=== PATIENT | female | born 2005 | race Two or more races ===

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

== ENCOUNTER 2024-12-26 21:22 | Emergency (ER) | payer MEDICAID ==
[~2024-12-26] VITALS: Ht 152.4 cm; Wt 67.9 kg
[~2024-12-26 21:22] MED LIST: DOCU-94 PO; NAPR-746 PO
--- NOTE | 2024-12-26 21:56 | ED.PDOC ---
History of Present Illness(SKN HPI Comments This is a 18-year-old female presents to the ED chief complaint cat bites. Patient states her domestic cat at home she notes vaccines are up-to-date attacked her started acting funny and started scratching both her arms and bit her left and right wrist. Complaining of pain throbbing like 6/10 on pain sca le. Reports no fevers nausea vomiting, bleeding controlled no full-thickness bite penny. Chief Complaint: Animal Bite Time Seen by MD: 21:30 History of Present Illness: Nurses Notes, Medications, Allergies Allergies: Coded Allergies: NO KNOWN ALLERGIES (Unverified , 05/28/22) Home Meds Active Scripts Naproxen (Naproxen) 500 Mg Tab, 500 MG PO BID, #30 TAB Prov:VIC FARFAN 05/28/22 Docusate Sodium (Colace) 100 Mg Cap, 1 CAP PO BID, #30 CAP Prov:VIC FARFAN 05/28/22 Information Source: Patient Mode of Arrival: Ambulatory Past Medical History PAST MEDICAL HISTORY: Denies Surgical History: Denies all surgeries [employer] History: No Pertinent [employer] History Family History Family History: Reviewed,noncontributory to illness Social History Smoker: Non-Smoker Alcohol: Denies ETOH Use Drugs: Denies Drug Use Lives In: Home Constitutional: denies: chills, diaphoresis, fatigue, fever, malaise, sweats, weakness, others EENTM: denies: blurred vision, double vision, ear bleeding, ear discharge, ear drainage, ear pain, ear ringing, eye pain, eye redness, hearing loss, mouth pain, mouth swelling, nasal discharge, nose bleeding, nose congestion, nose pain, photophobia, tearing, throat pain, throat swelling, voice changes, others Respiratory: denies: cough, hemoptysis, orthopnea, SOB at rest, shortness of breath, SOB with excertion, stridor, wheezing, others Cardiovascular: denies: chest pain, dizzy spells, diaphoresis, Dyspnea on e xertion, edema, irregular heart beat, left arm pain, lightheadedness, palpitations, PND, syncope, others Gastrointestinal: denies: abdomen distended, abdominal pain, blood streaked bowels, constipated, diarrhea, dysphagia, difficulty swallowing, hematemesis, melena, nausea, poor appetite, poor fluid intake, rectal bleeding, rectal pain, vomiting, others Genitourinary: denies: abnormal vagina bleeding, burning, dyspareunia, dysuria, flank pain, frequency, hematuria, incontinence, pain, , vagina discharge, urgency, others Neurological: denies: dizziness, fainting, headache, left sided numbness, left sided weakness, numbness, paresthesia, pre-existing deficit, right sided numbness, right sided weakness, seizure, speech problems, tingling, tremors, weakness, others Musculoskeletal: denies: back pain, gout, joint pain, joint swelling, muscle pain, muscle stiffness, neck pain, others Integumetry: reports: wounds (Penny bilateral upper and lower arms); denies: bruises, change in color, change in hair/nails, dryness, laceration, lesions, lumps, rash, others Allergic/Immunocompromised: denies: Difficulty Healing, Frequent Infections, Hives, Itching, others Hematologic/Lymphatic: denies: anemia, blood clots, easy bleeding, easy bruising, swollen glands, others Endocrine: denies: excessive hunger, excessive sweating, excessive thirst, excessive urination, flushing, intolerance to cold, intolerance to heat, unexplained weight gain, unexplained weight loss, others Psychiatric: denies: anxiety, bipolar disorder, depression, hopeless, panic disorder, schizophrenia, sleepless, suicidal, others Physical Exam General Appearance: No Apparent Distress, Normal HEENT: Pharynx Normal Neck: Full Range of Motion, Non-Tender Respiratory: Lungs Clear, No Respiratory Distress, Normal Breath Sounds Cardiovascular: No Edema, No JVD, No Murmur, No Gallop, Normal Peripheral Pulses, Regular Rate/Rhythm Breast Exam: Deferred Gastrointestinal: No Organomegaly, Non Tender, No Pulsatile Mass, Normal Bowel Sounds, Soft Genitalia: Deferred Pelvic: Deferred Rectal: Deferred Extremities: Normal capillary refill, Normal inspection, Normal range of motion, Non-tender, No pedal edema Musculoskeletal : Apperance: Normal Neurologic: Alert, No Motor Deficits, Normal Affect, Normal Mood, No Sensory Deficits Cerebellar Function: Normal Reflexes: Normal Skin: Dry, Normal Color, Warm, Wounds (Superficial scratches bilateral lower and upper arms. Superficial bite lionel/laceration to right posterior wrist and left biceps bleeding controlled no obvious foreign body) Lymphatic: No Adenopathy Was a procedure done? Was a procedure done?: No Differential Diagnosis (INTG) Differential Diagnosis: Cellulitis, Laceration, Puncture Wound Differential Diagnosis: Abscess X-Ray, Labs, Meds, VS Vital Signs Date Time Temp Pulse Resp B/P (MAP) Pulse Ox O2 Delivery O2 Flow Rate FiO2 12/26/24 21:22 98.4 75 17 123/72 (89) 99 98.4 X-Ray, Labs, Meds, VS Comment Wounds cleansed and dressed. Script trial of Bactrim patient states Tdap is up-to-date. Advised to follow up with her PCP urgent care or back here in 2 days for wound re-evaluation. [id number] Tylenol or Motrin as needed for the pain per labeled dosing instructions ER return precautions given patient indicates understanding and agrees with discharge plan of care Time of 1ST Reevaluation: 22:02 Reevaluation 1ST: Improved Patient Education/Counseling: Diagnosis, Treatment, Prognosis, Need For Follow Up Family Education/Counseling: No Family Present Departure 1 Departure Time of Disposition: 22:04 Impression: Primary Impression: Cat bite Qualified Codes: W55.01XA - Bitten by cat, initial encounter Disposition: HOME / SELF CARE / HOMELESS Condition: Stable e-Prescriptions Sulfamethoxazole W/Trimethopri (Bactrim Ds Tablet) 1 Tab Tb 1 TAB PO BID for 7 Days, #14 TAB Prov: JEFF BOURGEOIS 12/26/24 Discharged With: Self Critical Care Note Critical Care Time?: No Stability Stability form required: No JEFF BOURGEOIS Dec 26, 2024 21:56
[2024-12-26] MEDS ORDERED: BACDST PO (22:05)
[2024-12-26 22:54] VITALS: BP 123/72; PULSE 75; RESP 17; TEMP 98.4; O2SAT 99
[2024-12-26] MEDS: HYDROcodone-ACET 5/325MG TAB PO ONE (22:57)
== END 2024-12-26 22:58 | disposition home or self-care (01) ==
LOC: ER 21:24
DX: S46.222A Laceration of muscle, fascia and tendon of other parts of biceps, left arm, initial encounter (principal); S61.511A Laceration without foreign body of right wrist, initial encounter; W55.01XA Bitten by cat, initial encounter; Y93.89 Activity, other specified; Y92.89 Other specified places as the place of occurrence of the external cause; Y99.8 Other external cause status